=== PATIENT | female | born 1930 | race Caucasian/White ===

== ENCOUNTER 2017-01-26 14:56 | Inpatient (IN) | payer OTHER ==
[~2017-01-26] VITALS: Ht 154.9 cm; Wt 64.9 kg
--- NOTE | ~2017-01-26 | HC ---
[facility] [place] [address] CONSULTATION Name: GARCIA AYON Room #: 429-P [facility] IN M.R.#: [id number] Admission: 01/26/17 Attend Phys: Luis Enrique Su MD Discharge: Date of : 11/28/28 Report #: [id number] THIS REPORT FOR: //name// CC: Jayshree Mendez MD HISTORY OF PRESENT ILLNESS: The patient is an 86-year-old female who is confused. The patient's daughter is in the room and she states that her mother has some confusion at home, but has been more confused in the hospital and her daughter was concerned about this. The patient was admitted for urinary tract infection, which has now grown out Klebsiella pneumoniae and is now being treated with IV antibiotics. The patient is on thyroid medication. She has had a CT scan of the head and this showed global atrophy and moderate microvascular disease. I spoke with the patient's daughter and she is not interested in her mother being on any medication for her memory. PAST MEDICAL HISTORY: Hypertension, hyperlipidemia, hypothyroidism, Fuchs disease, dementia. PAST SURGICAL HISTORY: Left hip replacement, cataract removal, corneal transplant. MEDICATIONS: At home levothyroxine 150 mcg daily, Zocor 20 mg at bedtime, trazodone 50 mg at bedtime, aspirin 81 mg daily, fish oil 1000 mg daily, vitamin C 500 mg daily, magnesium 250 mg daily, calcium daily, vitamin B12 1000 mcg daily, multivitamin daily, glucosamine 2000 mg daily, coconut oil 1000 mg daily, lecithin 1200 mg daily, Combigan eye drops b.i.d. REVIEW OF SYSTEMS: SULFA. OBJECTIVE" VITAL SIGNS: Temperature 36.8, pulse rate 102, respiratory rate 17, blood pressure 143/83, bedside pulse oximetry 84% on room air. LABORATORY DATA: White blood cell count 9.1, hemoglobin 13.2, hematocrit 38.5, MCV 89.5, platelet count 241,000. Urinalysis, trace blood, 1+ leukocyte esterase, few bacteria. Chemistry: Sodium 131, potassium 4.2, chloride 97, carbon dioxide 24, BUN 10, creatinine 0.8, glucose 103. Lactic acid 1. Calcium 8.2, magnesium 2.1, total bilirubin 0.7, AST 29, ALT 28. TSH 2.198. PHYSICAL EXAMINATION: NEUROLOGIC: The patient did not know the year. When I asked her who her daughter was, she said this is my mother. It was difficult to know whether she was joking because she did know her daughter's first and last name. NEUROLOGIC: Cranial nerves 2-12 are grossly intact. She moved all extremities equally. There was no evidence of dysmetria. [place] [address] CONSULTATION Name: GARCIA AYON Room #: 429-P [facility] IN M.R.#: [id number] Admission: 01/26/17 Attend Phys: Luis Enrique Su MD Discharge: Date of : 11/28/28 Report #: [id number] IMPRESSION: This patient has dementia. I explained to her daughter that her mother will be more confused when she is not in a familiar environment and when she has an underlying infection. Once the infection is cleared and her mother returns home. She will return to her baseline confusion. I asked her daughter if she would like medication for the memory. Her daughter declined. I will order a B12 level to see if perhaps low B12 is contributing to the confusion and her daughter was amenable to having this done. Beyond this, I have no further suggestions. I thank you for your kind referral of the patient. <ELECTRONICALLY SIGNED> By: Jessie Bueno DO 01/30/17 1024 [id number] 0710 Jessie Bueno DO /nt
--- NOTE | ~2017-01-26 | EKG ---
[address] [place] [address] ELECTROCARDIOGRAM REPORT Name: GABORANULFOJaylene Room #: 429-P ADM IN M.R.#: [id number] Admission: 01/26/17 Attend Phys: Timmy Mendez MD Discharge: Date of : 11/28/28 Report #: [id number] THIS REPORT FOR: //name// [facility] ED Test Date: 2017-01-26 Test Time: 15:46:16 Pat Name: GARCIA AYON Department: Room: 429 Gender: F Program Scheduler: SONAM PECK : 1930 Requested By: Yecenia Head Order Number: [id number] MD: Temo Moreno Measurements Intervals [place] Rate: 75 P: 23 PA: 162 QRS: -8 QRSD: 82 T: 39 QT: 366 QTc: 409 Interpretive Statements Sinus rhythm Probable left atrial enlargement Abnormal R-wave progression, early transition Compared to ECG 09/08/2016 18:56:03 No significant changes Electronically Signed On 01-27-2017 22:24:46 CDT by Temo Moreno [email or web address] <ELECTRONICALLY SIGNED> By: Temo Moreno MD 01/27/17 2224 1546 1546 Temo Moreno MD /TRAV
[~2017-01-26 14:56] MED LIST: AZITHROMYCIN 2250 MG PO; LEVOTHYROXINE 0.15MG PO; NORVASC5 MG PO; TRAZODONE HCL50 MG PO; ZOCOR20 MG PO
[2017-01-26 14:57] VITALS: BP 176/95
[2017-01-26 15:38] LABS: BASOPHILS 0.6 % (0.0-2.0); EOSINOPHILS 0.9 % (0.0-3.0); HEMATOCRIT 38.6 % (37.0-47.0); HEMOGLOBIN 13.2 gm/dL (12.0-15.0); LYMPHOCYTES 25.6 % (24.0-44.0); MANUAL DIFF NO; MCH 30.6 pg (26.0-34.0); MCHC 34.2 g/dL (28.0-37.0); MCV 89.7 fL (80.0-100.0); PLATELET COUNT 263 thou/uL (150-400); POLYS 63.9 % (36.0-66.0); RDW 13.6 % (10.5-14.5); WBC 7.8 thou/uL (4.0-11.0)
[2017-01-26] MEDS ORDERED: FISH OIL 1,001000 M2 PO (15:41)
[2017-01-26] MEDS ORDERED: VITAMINC500 PO (15:41)
[2017-01-26] MEDS ORDERED: ASPIR 8181 MG PO (15:41)
[2017-01-26] MEDS ORDERED: CALCIUM 500 +1 EAC5 PO (15:42)
[2017-01-26] MEDS ORDERED: B12INJ IM (15:42)
[2017-01-26] MEDS ORDERED: UNICOMPLEX M TA1 TA1 PO (15:42)
[2017-01-26] MEDS ORDERED: MAGOX 400400 MG PO (15:42)
[2017-01-26] MEDS ORDERED: LECITHIN1200 M1 PO (15:43)
[2017-01-26] MEDS ORDERED: GLUCOSAMINE HC500 MG PO (15:43)
[2017-01-26] MEDS ORDERED: COCONUT OIL1000 MG PO (15:43)
[2017-01-26 15:47] LABS: ANION GAP 8 mmol/L (7-16); BUN 9 mg/dL (7-18); CALCIUM 8.3 mg/dL (8.5-10.1); CHLORIDE 95 mmol/L (98-107); CO2 24 mmol/L (21-32); CREATININE 0.8 mg/dL (0.6-1.0); GLUCOSE 97 mg/dL (74-106); POTASSIUM 4.2 mmol/L (3.5-5.1); SODIUM 127 mmol/L (136-145)
[2017-01-26] MEDS ORDERED: COMBIGAN EYE DR10 ML OP (15:47)
[2017-01-26] MEDS ORDERED: [UNRECOGNIZED DRUG - OTHER] OPHTHALMIC (15:49)
[2017-01-26 15:54] LABS: ALBUMIN 3.2 g/dL (3.4-5.0); ALKALINE PHOSPHATASE 88 U/L (46-116); SGOT 29 U/L (15-37); SGPT 28 U/L (30-65); TOTAL BILIRUBIN 0.7 mg/dL (<0.1-1.0); TOTAL PROTEIN 6.8 g/dL (6.4-8.2); TROPONIN-I < 0.04 ng/mL (<0.04-0.07)
[2017-01-26 15:58] LABS: MAGNESIUM 2.1 mg/dL (1.8-2.4)
[2017-01-26 16:04] LABS: URINE BILIRUBIN NEGATIVE (Negative); URINE BLOOD TRACE (Negative); URINE COLOR YELLOW; URINE GLUCOSE-RANDOM* NEGATIVE (Negative); URINE KETONES NEGATIVE (Negative); URINE NITRITE NEGATIVE (Negative); URINE PROTEIN (DIPSTICK) NEGATIVE (Negative); URINE UROBILINOGEN 0.2 E.U./dl (0.2-1.0)
[2017-01-26 16:16] LABS: SQUAMOUS 0-3 Few /LPF (0-3)
[2017-01-26 16:17] LABS: BACTERIA 1-9 Few /HPF (None Seen); CASTS None Seen /LPF (None Seen); CRYSTALS None Seen /LPF (None Seen); URINE RBC None Seen /HPF (0-2); URINE WBC 6-15 Few /HPF (0-5)
[2017-01-26 17:24] VITALS: BP 211/102
[2017-01-26 17:50] VITALS: BP 188/92
[2017-01-26 20:00] VITALS: BP 123/68
[2017-01-27 04:30] VITALS: BP 148/90
[2017-01-27 05:10] LABS: HEMATOCRIT 38.5 % (37.0-47.0); HEMOGLOBIN 13.2 gm/dL (12.0-15.0); MCH 30.6 pg (26.0-34.0); MCHC 34.2 g/dL (28.0-37.0); MCV 89.5 fL (80.0-100.0); RBC 4.31 mil/uL (4.20-5.00); RDW 13.8 % (10.5-14.5); WBC 9.1 thou/uL (4.0-11.0)
[2017-01-27 05:28] LABS: CALCIUM 8.2 mg/dL (8.5-10.1); CREATININE 0.8 mg/dL (0.6-1.0)
[2017-01-27 07:18] VITALS: BP 180/93
[2017-01-27 17:57] VITALS: BP 156/69
[2017-01-27 20:00] VITALS: BP 144/66
[2017-01-27 23:45] VITALS: BP 144/66
[2017-01-28 04:00] VITALS: BP 195/95
[2017-01-28 07:09] LABS: CALCIUM 8.2 mg/dL (8.5-10.1); CREATININE 0.8 mg/dL (0.6-1.0); POTASSIUM 4.2 mmol/L (3.5-5.1)
[2017-01-28 11:15] VITALS: BP 174/89
[2017-01-28 15:49] VITALS: BP 143/83
[2017-01-28 20:00] VITALS: BP 120/49; BP 186/92
[2017-01-29 04:15] VITALS: BP 186/92
[2017-01-29 04:30] VITALS: BP 158/88
[2017-01-29 05:24] LABS: ABSOLUTE NEUTROPHILS 5.5 thou/uL (1.4-8.2); BASOPHILS 0.4 % (0.0-2.0); EOSINOPHILS 0.5 % (0.0-3.0); HEMATOCRIT 37.3 % (37.0-47.0); HEMOGLOBIN 12.6 gm/dL (12.0-15.0); MCH 30.2 pg (26.0-34.0); MCHC 33.8 g/dL (28.0-37.0); MCV 89.3 fL (80.0-100.0); MONOCYTES 7.6 % (1.0-8.0); PLATELET COUNT 229 thou/uL (150-400); POLYS 76.5 % (36.0-66.0); RBC 4.17 mil/uL (4.20-5.00); RDW 14.1 % (10.5-14.5); WBC 7.2 thou/uL (4.0-11.0)
[2017-01-29 05:42] LABS: CALCIUM 7.9 mg/dL (8.5-10.1); CREATININE 0.8 mg/dL (0.6-1.0)
[2017-01-29 05:44] LABS: MANUAL DIFF NO
[2017-01-29 07:40] VITALS: BP 154/87
[2017-01-29 20:00] VITALS: BP 119/74
[2017-01-30 04:00] VITALS: BP 160/74
[2017-01-30 06:55] LABS: CALCIUM 8.1 mg/dL (8.5-10.1); CREATININE 0.8 mg/dL (0.6-1.0); POTASSIUM 4.2 mmol/L (3.5-5.1)
[2017-01-30 07:17] VITALS: BP 150/79
[2017-01-30] MEDS ORDERED: CEFUROXIME500 MG PO (10:35)
[2017-01-30] MEDS ORDERED: AMLODIPINE BESYL5 M1 PO (10:35)
[2017-01-30] MEDS ORDERED: COZAAR100 MG PO (10:35)
[2017-01-30 14:47] VITALS: BP 150/79
[2017-01-30 15:33] VITALS: BP 159/91
[2017-01-30 16:08] VITALS: BP 150/79
== END 2017-01-30 19:00 | disposition home or self-care (01) | DRG 689 ==
LOC: ER 14:56 → 4E 16:24 → EROBS 16:24 → 4E 17:27
PROVIDERS: Hospitalist; Internal Medicine; Internal Medicine Endocrinology, Diabetes & Metabolism; Nurse Practitioner Family
DX: N39.0 Urinary tract infection, site not specified (principal); G93.41 Metabolic encephalopathy; E87.1 Hypo-osmolality and hyponatremia; F03.90 Unspecified dementia, unspecified severity, without behavioral disturbance, psychotic disturbance, mood disturbance, and anxiety; E78.5 Hyperlipidemia, unspecified; B96.1 Klebsiella pneumoniae [K. pneumoniae] as the cause of diseases classified elsewhere; I10 Essential (primary) hypertension; Z96.642 Presence of left artificial hip joint; Z98.49 Cataract extraction status, unspecified eye; Z94.7 Corneal transplant status; Z88.2 Allergy status to sulfonamides; Z79.899 Other long term (current) drug therapy
CPT/HCPCS: 10084; 10783

== ENCOUNTER 2017-02-08 20:59 | Inpatient (IN) | payer OTHER ==
[~2017-02-08] VITALS: Ht 154.9 cm; Wt 62.5 kg
--- NOTE | ~2017-02-08 | 2DMMODE ---
[facility] [address] [facility] [place] [address] 2 D/M-MODE ECHOCARDIOGRAM Name: GARCIA AYON Room #: 239-P [facility] IN ..#: [id number] Admission: 02/08/17 Attend Phys: Prosper Virgen, Discharge: Date of : 11/28/28 Date of Service: 02/09/17 1225 Report #: [id number] THIS REPORT FOR: //name// APPROVED REPORT Study performed: 02/09/2017 10:29:20 EXAM: Comprehensive 2D, Doppler, and color-flow Echocardiogram Patient Location: Bedside/MUSIC THERAPIST Room #: 545 Blood Pressure: 192/108 mmHg HR: 77 bpm Rhythm: NSR Other Information Study Quality: Adequate Indications Altered mental status. Hypotension. Hx: HTN, HLP 2D Dimensions RVDd: 26.45 mm LVEF(%): 55.17 (>50%) IVSd: 11.88 (7-11mm) LVOT Diam: 18.71 (18-24mm) LVDd: 36.20 mm PWd: 0.28 (7-11mm) Ascending Ao: 35.17 (22-36mm) LVDs: 26.05 (25-40mm) Aortic Root: 11.55 mm Crump's LVEF: 55.17 % Volumes Left Atrial Volume (Systole) Single Plane 4CH: 26.36 mL Single Plane 2CH: 54.93 mL LA ESV Index: 27.00 mL/m2 Aortic Valve AoV Peak Kendall.: 2.59 m/s AO Peak Gr.: 26.86 mmHg LVOT Max P.58 mmHg AO Mean Gr.: 15.05 mmHg AO V2 Mean: 1.87 m/s LVOT Max V: 0.95 m/s AO V2 VTI: 59.64 cm SHIN Vmax: 1.00 cm2 [facility] [place] [address] 2 D/M-MODE ECHOCARDIOGRAM Name: GARCIA AYON Room #: 239-P [facility] IN M.R.#: [id number] Admission: 02/08/17 Attend Phys: Prosper Virgen, Discharge: Date of : 11/28/28 Date of Service: 02/09/17 1225 Report #: [id number] Mitral Valve E/A Ratio: 0.6 MV Decel. Time: 201.64 ms MV E Max Kendall.: 0.78 m/s MV A Kendall.: 1.20 m/s MV PHT: 58.47 ms IVRT: 117.65 ms Pulmonary Valve PV Peak Kendall.: 0.99 m/s PV Peak Gr.: 3.92 mmHg Pulmonary Vein P Vein S: 0.56 m/s P Vein D: 0.31 m/s P Vein S/D Ratio: 1.81 Tricuspid Valve TR Peak Kendall.: 2.99 m/s RAP Estimate: 5.00 mmHg TR Peak Gr.: 35.75 mmHg RVSP: 41.00 mmHg Left Ventricle The left ventricle is normal size. There is normal LV segmental wall motion. Mild concentric left ventricular hypertrophy. Left ventricular systolic function is normal. LVEF is 55-60%. Grade I - abnormal relaxation pattern. Right Ventricle The right ventricle is normal size. The right ventricular systolic function is normal. Atria The left atrium size is normal. Small PFO is noted. The right atrium size is normal. Aortic Valve Aortic valve is moderately calcified. Mild aortic regurgitation. Mild to at most moderate aortic stenosis. Mitral Valve The mitral valve is mildly thickened. Moderate mitral regurgitation. Tricuspid Valve The tricuspid valve is normal in structure. There is mild to moderate tricuspid regurgitation. The right atrial pressure is estimated at 5 mmHg. There is mild-moderate pulmonary hypertension with an estimated [facility] [address] [place] [address] 2 D/M-MODE ECHOCARDIOGRAM Name: GARCIA AYON Room #: 239-P ADM IN .R.#: [id number] Admission: 02/08/17 Attend Phys: Prosper Virgen, Discharge: Date of : 11/28/28 Date of Service: 02/09/17 1225 Report #: [id number] PAP of 41mmHg. Pulmonic Valve The pulmonary valve is normal in structure. Trace pulmonic regurgitation. Great Vessels The aortic root is normal in size. The ascending aorta is normal in size. IVC is normal in size and collapses >50% with inspiration. Pericardium There is no pericardial effusion. <Conclusion> Left ventricular systolic function is normal. There is normal LV segmental wall motion. LVEF 55-60%. Grade I diastolic dysfunction Aortic valve is moderately calcified. Mild to at most moderate aortic stenosis. Mild aortic regurgitation. The mitral valve is mildly thickened. Moderate mitral regurgitation. Pulmonary artery pressure of 40mm Hg. There is no pericardial effusion. <ELECTRONICALLY SIGNED> By: Cedrick Galeano MD, FACC 02/09/17 1225 1225 1225 Cedrick Galeano MD, FACC /INF
--- NOTE | ~2017-02-08 | EKG ---
[address] [address] ELECTROCARDIOGRAM REPORT Name: RANULFO AYONJaylene Room #: 239-P ADM IN M.R.#: [id number] Admission: 02/08/17 Attend Phys: Jeremi Nunez MD Discharge: Date of : 11/28/28 Report #: [id number] THIS REPORT FOR: //name// [facility] Test Date: 2017-02-09 Test Time: 12:54:49 Pat Name: GARCIA AYON Department: Room: 239 Gender: F User Experience Team Lead: SANDRA : 1930 Requested By: Curtis Rojas Order Number: [id number] MD: Cedrick Galeano Measurements Intervals [place] Rate: 81 P: 27 ND: 181 QRS: 3 QRSD: 88 T: 54 QT: 394 QTc: 458 Interpretive Statements Sinus rhythm No significant abnormality Compared to ECG 01/26/2017 15:46:16 No significant change was found Electronically Signed On 02-10-2017 11:47:52 CDT by Cedrick Galeano [email or web address] <ELECTRONICALLY SIGNED> By: Cedrick Galeano MD, [facility] 02/10/17 1147 1254 1254 Cedrick Galeaon MD, FAC /EPI
--- NOTE | ~2017-02-08 | HC ---
[facility] [place] [address] CONSULTATION Name: GARCIA AYON Room #: 203-P [facility] IN M.R.#: [id number] Admission: 02/08/17 Attend Phys: Prosper Virgen MD Discharge: Date of : 11/28/[birth year] Report #: [id number] THIS REPORT FOR: //name// CC: Prosper Virgen Jayshree Luis HISTORY OF PRESENT ILLNESS: The patient is an 86-year-old white female who was admitted with hypertension, headache and hallucinations. She has had some problems with low blood pressure as well as elevated blood pressure up to 212/116. She was readmitted to [facility] with delirium/encephalopathy on top of dementia with hallucinations. She was noted to have hyponatremia, sodium 127, labile hypertension, question of pneumonia. She is being seen by Neurology and an EEG is being done. Nephrology is involved with noted hyponatremia, is thought to have a sodium depleted state. There is a question of SIADH. She is being monitored in the ICU regarding her labile hypertension and her multiple medical issues. She has the psychosis/hallucinations. She was noted to have dyslipidemia. She also is being treated for pneumonia with a left basilar infiltrate. We are seeing her in rehabilitation medicine consultation. Her sodium actually dropped all the way down to 116 and Nephrology has been involved and it has improved since, back up to 126. PAST MEDICAL HISTORY: Includes her recent hospitalization 01/26/2017 to 01/30/2017 with a diagnosis of encephalopathy, metabolic with underlying dementia. Neurology saw her. Recommendation was for Aricept. The daughter was not interested. Past history also includes hypertension, high cholesterol, left hip replacement, cataract removal, corneal transplant. PAST SURGICAL HISTORY: Please see the above. HABITS: Nonsmoker, no history of alcohol or drug abuse. MEDICATIONS: Please see the full medication listing. ALLERGIES: Includes SULFA. SOCIAL HISTORY: Lives with her daughter who works during the day, there are 2 steps in, other family members had been able to stay with the patient after her most recent hospitalization. REVIEW OF SYSTEMS: Did not offer any current complaints of chest pain, shortness of breath or abdominal discomfort. Review of systems was somewhat limited with her current mental status. PHYSICAL EXAMINATION: GENERAL: An 86-year-old white female seen in the intensive care unit. VITAL SIGNS: Last recorded temperature is 97.8, pulse 77, respirations 15, [facility] [address] [place] [address] CONSULTATION Name: GARCIA AYON Room #: 203-P [facility] IN M.R.#: [id number] Admission: 02/08/17 Attend Phys: Prosper Virgen MD Discharge: Date of : 11/28/28 Report #: [id number] blood pressure is 90/59. NEUROLOGIC: The patient is sleepy. She will arouse and then quickly go back off to sleep. Facies appeared symmetric. She has functional range of motion of both her upper and lower extremities. I could not get actual volitional testing results with her, but she appeared to have reasonably good strength, probably at least a grade 4- to 3+/5. Tone appeared to be intact. No focal calf swelling. No distal lower extremity edema. ASSESSMENT: An 86-year-old white female with the following problem list: 1. Apparent encephalopathy, metabolic with hallucinations superimposed underlying dementia. 2. Severe hyponatremia that has improved. 3. Labile hypertension. 4. Possible pneumonia on empiric Rocephin. 5. Hypothyroidism. 6. Hyperlipidemia. PLAN: Note that Neurology is involved and an EEG has been ordered. PT and OT orders have been entered as well. We will continue to follow along with you regarding rehab therapy needs as she further medically stabilizes. <ELECTRONICALLY SIGNED> By: Caden Mcgovern MD 02/15/17 1556 1134 2235 Caden Mcgovern MD /nt
--- NOTE | ~2017-02-08 | HC ---
[facility] [place] [address] CONSULTATION Name: GARCIA AYON Room #: 239-P ADM IN M.R.#: [id number] Admission: 02/08/17 Attend Phys: Prosper Virgen MD Discharge: Date of : 11/28/28 Report #: [id number] THIS REPORT FOR: //name// CC: Jayshree Nuenz REASON FOR THE CONSULTATION: Hyponatremia. HISTORY OF PRESENT ILLNESS: The details of the history are not available as the patient is not able to provide me with any history. She has an acute mental status issue. She was brought to the emergency room for evaluation of hypertension, headache, hallucination. She had a recent hospitalization couple of weeks ago and was found to have urinary tract infection per the notes. She is known to have hypertension, hyperlipidemia. On presentation, she was found to have sodium of 127. Over the course of 36 hours, her sodium dropped down to 117. Does look like the patient was receiving normal saline. She is also known to have hypothyroidism. She had received numerous antipsychotic medications. There is no new medications started as an outpatient. She is maintained on amlodipine, losartan for blood pressure. She does not have any kidney problems in the past. No known cardiac problems. As I have stated, the patient is currently not able to provide me with the details of the history. PAST MEDICAL HISTORY: 1. Hypertension. 2. Hyperlipidemia. 3. Recent urinary tract infection. 4. Hypothyroidism. MEDICATIONS: Listed ____, coconut, glucosamine, magnesium, aspirin, trazodone, levothyroxine, cefuroxime, losartan, amlodipine. PAST SURGICAL HISTORY: Corneal transplant. Left hip replacement. SOCIAL HISTORY: No drug or alcohol abuse. REVIEW OF SYSTEMS: Unobtainable given the patient's mental status. PHYSICAL EXAMINATION: GENERAL: The patient is currently confused. She is not able to provide me with any history. She is not able to cooperate with examination. VITAL SIGNS: Most recent blood pressure values revealed a blood pressure of 170/109. Pulse rate 88. HEAD AND NECK: No jugular venous distention, no bruit, no thyromegaly. CHEST: Clear to auscultation bilaterally. CARDIOVASCULAR: No rub detected. ABDOMEN: Soft, nontender. LOWER EXTREMITIES: She does have edema. [facility] [address] [place] [address] CONSULTATION Name: [facility]ITAL[facility] Room #: 239-[facility] IN M.R.#: [id number] Admission: 02/08/17 Attend Phys: Prosper Virgen MD Discharge: Date of : 11/28/[birth year] Report #: [id number] LABORATORY VALUES: Reviewed. Sodium is down to 117. Chloride is 86, carbon dioxide is 21, BUN is 8, creatinine is 0.7, glucose is 124. UA revealed an urine pH of 7 and urine specific gravity of . IMAGING: Including the chest x-ray reviewed. ASSESSMENT, IMPRESSION AND PLAN: 1. Hyponatremia. 2. Hypertension. 3. Dementia. 4. Fuchs corneal dystrophy. 5. Source of the hyponatremia is likely related to desalination after receiving the normal saline. I would discontinue the normal saline. 6. I will initiate the workup for the hyponatremia with the appropriate urine studies, osmolarity studies. 7. Minimize all medications that might contribute to hyponatremia including sedatives, hypnotics. 8. Manage her blood pressure with clonidine patch for now. 9. One dose of Lasix. 10. Keep n.p.o. for now. 11. Serial sodium. 12. I will check on the next serum sodium level to decide about further adjustment of her medications including starting her on 3% normal saline. 13. If that is to be initiated we will have to follow the serum sodium closely and aim for a very slow correction of her serum sodium. Further plans will be dictated after we obtain the initial urine studies. <ELECTRONICALLY SIGNED> By: Clifford Cotton MD 02/12/17 0735 0748 1416 Rebeca Quiroz MD /nt
--- NOTE | ~2017-02-08 | HC ---
[facility] [place] [address] CONSULTATION Name: GARCIA AYON Room #: 239-[facility] IN M.R.#: [id number] Admission: 02/08/17 Attend Phys: Prosper Virgen MD Discharge: Date of : 11/28/28 Report #: [id number] THIS REPORT FOR: //name// CC: Jayshree Nunez REASON FOR CONSULTATION: Hypertension. HISTORY OF PRESENT ILLNESS: The patient is an 86-year-old woman with severe underlying dementia. She has a history of hypertension and was seen in the Emergency Department for hallucinations and headache. She had been evaluated in the Emergency Department and sent home on amlodipine and losartan for a blood pressure of 212/116. The patient's daughter has checked blood pressure carefully and held dosing for blood pressures that had been on the low side. At the time of presentation, her blood pressure was 165/83. After getting to the floor, she became more confused, was hallucinating and crawled under her bed. She was given clonidine 0.1 mg for blood pressure of 203/112 with subsequent drop in blood pressure that was clinically asymptomatic. There is no prior cardiac history that I can glean from the chart. HOME MEDICATIONS: Include amlodipine 5 mg daily, levothyroxine 0.15 mg daily, Zocor 20 mg daily, trazodone, aspirin 81 mg daily. PAST MEDICAL HISTORY: Notable for left hip replacement, dyslipidemia, hypertension corneal transplant, dementia. SOCIAL HISTORY, FAMILY HISTORY AND REVIEW OF SYSTEMS: Not obtainable. PHYSICAL EXAMINATION: GENERAL: Reveals an elderly woman who is alert, although unable to give any meaningful history. VITAL SIGNS: Blood pressure is 192/108, heart rate of 80 and regular. She is afebrile, 5 feet 1 inches tall, 155 pounds. HEENT: There are neither xanthelasma, subcutaneous xanthomata, oral mucosal or digital cyanosis or kyphoscoliosis present. CHEST: Clear to auscultation and percussion. CARDIOVASCULAR: Regular rate and rhythm with a 2/6 systolic ejection murmur at the base. ABDOMEN: Soft and nontender. EXTREMITIES: Without edema. NEUROLOGIC: She is alert, although confused and disoriented. LABORATORY DATA: Sodium 127, potassium 4.7, creatinine 0.8. White count 6.7, hemoglobin 13, hematocrit 38, platelet count 239. Thyroid function studies are normal. Head CT demonstrates chronic changes. Chest x-ray demonstrates left basilar atelectasis or infiltrate, pulmonary [place] [address] CONSULTATION Name: GARCIA AYON Room #: [address] [place] [address] [place] [facility]#: [id number] Admission: 02/08/17 Attend Phys: Prosper Virgen MD Discharge: Date of : 11/28/[birth year] Report #: [id number] IMPRESSION: 1. Weight loss, hypertension. 2. Hypothyroidism. 3. Dyslipidemia. 4. Probable aortic stenosis by exam. RECOMMENDATIONS: 1. Continued use of low-dose losartan and amlodipine. 2. Dietary salt restriction. 3. In the absence of particular symptoms, I would be careful about treating hypertension as symptomatic hypotension will be more of a problem for the patient than moderate elevation. I will be available as issues or problems arise. <ELECTRONICALLY SIGNED> By: Cedrick Galeano MD, [facility] 02/11/17 1743 1146 1808 Cedrick Galeano MD, FAC /nt
[~2017-02-08 20:59] MED LIST changes: +AMLODIPINE BESYL5 M1 PO; +ASPIR 8181 MG PO; +B12INJ IM; +CALCIUM 500 +1 EAC5 PO; +CEFUROXIME500 MG PO; +COCONUT OIL1000 MG PO; +COMBIGAN EYE DR10 ML OP; +COZAAR100 MG PO; +FISH OIL 1,001000 M2 PO; +GLUCOSAMINE HC500 MG PO; +LECITHIN1200 M1 PO; +MAGOX 400400 MG PO; +UNICOMPLEX M TA1 TA1 PO; +VITAMINC500 PO; +[UNRECOGNIZED DRUG - OTHER] OPHTHALMIC
[2017-02-08 21:03] VITALS: BP 164/94
[2017-02-08 21:35] LABS: ABSOLUTE NEUTROPHILS 4.2 thou/uL (1.4-8.2); BASOPHILS 0.9 % (0.0-2.0); HEMATOCRIT 38.3 % (37.0-47.0); HEMOGLOBIN 13.1 gm/dL (12.0-15.0); MCH 30.8 pg (26.0-34.0); MCHC 34.3 g/dL (28.0-37.0); MCV 89.7 fL (80.0-100.0); MONOCYTES 8.9 % (1.0-8.0); PLATELET COUNT 239 thou/uL (150-400); POLYS 62.2 % (36.0-66.0); RBC 4.27 mil/uL (4.20-5.00); RDW 13.8 % (10.5-14.5); WBC 6.7 thou/uL (4.0-11.0)
[2017-02-08 21:36] LABS: MANUAL DIFF NO
[2017-02-08 21:37] LABS: URINE BILIRUBIN NEGATIVE (Negative); URINE BLOOD TRACE (Negative); URINE COLOR YELLOW; URINE GLUCOSE-RANDOM* NEGATIVE (Negative); URINE KETONES NEGATIVE (Negative); URINE LEUKOCYTES-REFLEX NEGATIVE (Negative); URINE PROTEIN (DIPSTICK) NEGATIVE (Negative); URINE UROBILINOGEN 0.2 E.U./dl (0.2-1.0)
[2017-02-08 21:41] LABS: CALCIUM 8.7 mg/dL (8.5-10.1); CREATININE 0.8 mg/dL (0.6-1.0); POTASSIUM 4.7 mmol/L (3.5-5.1)
[2017-02-08 22:59] VITALS: BP 165/83
[2017-02-08 23:59] VITALS: BP 195/107
[2017-02-09 04:14] VITALS: BP 203/112
[2017-02-09 07:56] VITALS: BP 192/108
[2017-02-09 14:40] VITALS: BP 181/109
[2017-02-09 16:00] VITALS: BP 187/104
[2017-02-09 19:25] VITALS: BP 144/89
[2017-02-09 23:09] LABS: GLYCOHEMOGLOBIN (HGB A1C) 5.6 % (4.8-5.6)
[2017-02-10] VITALS (57 sets, daily range): BP systolic 78–227; BP diastolic 50–155
[2017-02-10 03:26] LABS: HEMATOCRIT 38.4 % (37.0-47.0); HEMOGLOBIN 13.8 gm/dL (12.0-15.0); MCH 31.6 pg (26.0-34.0); MCHC 35.9 g/dL (28.0-37.0); RBC 4.36 mil/uL (4.20-5.00); RDW 13.6 % (10.5-14.5); WBC 8.2 thou/uL (4.0-11.0)
[2017-02-10 03:38] LABS: CALCIUM 8.3 mg/dL (8.5-10.1); CREATININE 0.6 mg/dL (0.6-1.0); POTASSIUM 3.8 mmol/L (3.5-5.1)
[2017-02-10 07:01] LABS: CALCIUM 8.5 mg/dL (8.5-10.1); CREATININE 0.7 mg/dL (0.6-1.0); POTASSIUM 4.2 mmol/L (3.5-5.1)
[2017-02-10 08:50] LABS: URINE BILIRUBIN NEGATIVE (Negative); URINE BLOOD 1+ (Negative); URINE COLOR YELLOW; URINE GLUCOSE-RANDOM* NEGATIVE (Negative); URINE KETONES NEGATIVE (Negative); URINE NITRITE NEGATIVE (Negative); URINE PROTEIN (DIPSTICK) TRACE (Negative); URINE SPECIFIC GRAVITY <= 1.005 (1.003-1.035); URINE UROBILINOGEN 0.2 E.U./dl (0.2-1.0)
[2017-02-10 09:09] LABS: SQUAMOUS 0-3 Few /LPF (0-3)
[2017-02-10 09:10] LABS: BACTERIA None Seen /HPF (None Seen); CASTS None Seen /LPF (None Seen); CRYSTALS None Seen /LPF (None Seen); URINE RBC 0-2 Rare /HPF (0-2); URINE WBC 0-5 Rare /HPF (0-5)
[2017-02-10 11:10] LABS: CREATININE 0.8 mg/dL (0.6-1.0); POTASSIUM 3.7 mmol/L (3.5-5.1)
[2017-02-10 11:11] LABS: CALCIUM 8.6 mg/dL (8.5-10.1)
[2017-02-10 15:09] LABS: CALCIUM 8.6 mg/dL (8.5-10.1); CREATININE 0.8 mg/dL (0.6-1.0); POTASSIUM 3.9 mmol/L (3.5-5.1)
[2017-02-10 22:08] LABS: URINE CREATININE-RANDOM* 26.4 mg/dL (Not Estab.)
[2017-02-11] VITALS (41 sets, daily range): BP systolic 54–161; BP diastolic 46–86
[2017-02-11 04:25] LABS: CALCIUM 8.3 mg/dL (8.5-10.1); CREATININE 0.9 mg/dL (0.6-1.0); PHOSPHORUS 3.6 mg/dL (2.5-4.9)
[2017-02-11 10:18] LABS: CHOLESTEROL 140 mg/dL (<200); HDL CHOLESTEROL 52 mg/dL (>40); LDL CHOLESTEROL 77 mg/dL (<100); TC:HDL 2.7 Ratio (Not establshd); TRIGLYCERIDE 59 mg/dL (<150); VLDL 12 mg/dL (<40)
[2017-02-11 12:09] LABS: FREE T4 2.25 ng/dL (0.82-1.77)
[2017-02-11 20:11] LABS: CALCIUM 8.4 mg/dL (8.5-10.1); CREATININE 1.1 mg/dL (0.6-1.0); POTASSIUM 3.6 mmol/L (3.5-5.1)
[2017-02-12] VITALS (14 sets, daily range): BP systolic 117–180; BP diastolic 70–151
[2017-02-12 05:26] LABS: HEMATOCRIT 42.2 % (37.0-47.0); HEMOGLOBIN 14.3 gm/dL (12.0-15.0); MCH 30.7 pg (26.0-34.0); MCV 90.3 fL (80.0-100.0); RBC 4.68 mil/uL (4.20-5.00); RDW 13.7 % (10.5-14.5); WBC 6.8 thou/uL (4.0-11.0)
[2017-02-12 05:47] LABS: ALBUMIN 3.3 g/dL (3.4-5.0); CALCIUM 8.6 mg/dL (8.5-10.1); CREATININE 0.9 mg/dL (0.6-1.0); MAGNESIUM 1.9 mg/dL (1.8-2.4); POTASSIUM 3.7 mmol/L (3.5-5.1)
[2017-02-12 06:08] LABS: GLYCOHEMOGLOBIN (HGB A1C) 5.6 % (4.8-5.6)
[2017-02-13] VITALS (8 sets, daily range): BP systolic 101–185; BP diastolic 50–112
[2017-02-13 02:52] LABS: HEMATOCRIT 43.2 % (37.0-47.0); HEMOGLOBIN 14.8 gm/dL (12.0-15.0); MCH 30.6 pg (26.0-34.0); MCHC 34.2 g/dL (28.0-37.0); MCV 89.4 fL (80.0-100.0); RBC 4.83 mil/uL (4.20-5.00); RDW 13.9 % (10.5-14.5); WBC 9.9 thou/uL (4.0-11.0)
[2017-02-13 03:11] LABS: ALBUMIN 3.3 g/dL (3.4-5.0); CALCIUM 8.6 mg/dL (8.5-10.1); CREATININE 0.9 mg/dL (0.6-1.0); PHOSPHORUS 3.1 mg/dL (2.5-4.9); POTASSIUM 3.8 mmol/L (3.5-5.1)
[2017-02-13 13:10] LABS: ALPHA TOCOPHEROL 10.7 mg/L (6.5-21.5)
[2017-02-14] VITALS (7 sets, daily range): BP systolic 80–188; BP diastolic 51–95
[2017-02-14 03:17] LABS: HEMATOCRIT 41.3 % (37.0-47.0); HEMOGLOBIN 14.2 gm/dL (12.0-15.0); MCH 30.7 pg (26.0-34.0); MCHC 34.3 g/dL (28.0-37.0); MCV 89.4 fL (80.0-100.0); RBC 4.62 mil/uL (4.20-5.00); RDW 13.8 % (10.5-14.5); WBC 9.5 thou/uL (4.0-11.0)
[2017-02-14 03:42] LABS: ALBUMIN 3.2 g/dL (3.4-5.0); CALCIUM 8.7 mg/dL (8.5-10.1); CREATININE 0.9 mg/dL (0.6-1.0); PHOSPHORUS 3.4 mg/dL (2.5-4.9); POTASSIUM 3.9 mmol/L (3.5-5.1)
[2017-02-15 01:42] VITALS: BP 142/90
[2017-02-15 03:12] LABS: CALCIUM 8.7 mg/dL (8.5-10.1); CREATININE 0.9 mg/dL (0.6-1.0); POTASSIUM 3.5 mmol/L (3.5-5.1)
[2017-02-15 03:58] VITALS: BP 146/82
[2017-02-15 07:20] VITALS: BP 95/53
[2017-02-15] MEDS ORDERED: AUGMENTIN 500-1 EACH PO (09:20)
[2017-02-15] MEDS ORDERED: CATAPRES0.1 MG PO ×2 (09:20→09:30)
[2017-02-15] MEDS ORDERED: ASPIRIN325 PO (09:20)
[2017-02-15] MEDS ORDERED: RISPERDAL0.5 MG PO ×2 (09:26→09:28)
[2017-02-15 11:35] VITALS: BP 93/76
== END 2017-02-15 15:56 | DRG 177 ==
LOC: ER 20:59 → ICU 22:30 → EROBS 22:30 → 5S 23:36 → ICU 02-10 06:29 → 2N 02-12 14:59
PROVIDERS: Emergency Medicine; Hospitalist; Internal Medicine Nephrology; Nurse Practitioner Family; Psychiatry & Neurology Neurology
DX: J69.0 Pneumonitis due to inhalation of food and vomit (principal); I63.9 Cerebral infarction, unspecified; E43 Unspecified severe protein-calorie malnutrition; G93.41 Metabolic encephalopathy; E87.1 Hypo-osmolality and hyponatremia; I10 Essential (primary) hypertension; E78.5 Hyperlipidemia, unspecified; Z96.642 Presence of left artificial hip joint; H18.51 Endothelial corneal dystrophy; E03.9 Hypothyroidism, unspecified; F03.90 Unspecified dementia, unspecified severity, without behavioral disturbance, psychotic disturbance, mood disturbance, and anxiety; F29 Unspecified psychosis not due to a substance or known physiological condition; R41.0 Disorientation, unspecified; Z98.49 Cataract extraction status, unspecified eye; Z88.2 Allergy status to sulfonamides; Z68.26 Body mass index [BMI] 26.0-26.9, adult; Z79.82 Long term (current) use of aspirin; Z79.899 Other long term (current) drug therapy; Z94.7 Corneal transplant status
CPT/HCPCS: 10081; 10086; 10196

== ENCOUNTER 2017-02-15 11:13 | Inpatient (IN) | payer OTHER ==
[~2017-02-15] VITALS: Ht 154.9 cm; Wt 68.4 kg
--- NOTE | ~2017-02-15 | HC ---
[facility] [place] [place] [address] CONSULTATION Name: GARCIA AYON Room #: 514-P [facility] IN M.R.#: [id number] Admission: 02/15/17 Attend Phys: Caden Mcgovern MD Discharge: 03/01/17 Date of : [birth year] Report #: [id number] THIS REPORT FOR: //name// CC: Caden Mcgovern Jayshree Luis DATE OF SERVICE: 02/17/2017 NEUROBEHAVIORAL STATUS EXAM ATTENDING PHYSICIAN: Caden Mcgovern M.D. TAX EVALUATOR: Kelvin Melgar, PhD CLINICAL PRESENTATION: The patient is an 86-year-old female admitted to the rehabilitation unit at [facility] for a comprehensive inpatient rehabilitation program to improve functional mobility, activities of daily living and self-care and mental status secondary to deficits from a metabolic encephalopathy. The patient was noted to have become confused and disoriented while in the home. Psychotic symptoms including hallucinations were noted. An has an underlying dementia is reported. She had a recent hospitalization on 01/26/2017 to 01/30/2017 with diagnoses of encephalopathy and underlying dementia. Her complete assessment on admission includes metabolic encephalopathy, severe hyponatremia which is improved with a question of inappropriate antidiuretic hormone secretion, labile hypertension, severe dysphagia, pulmonary infiltrates with possible pneumonia, premorbid dementia with independent community living. A complete description of her medical condition, history and medications can be found in her medical record. Neuropsychological consultation was requested to provide assistance in the assessment of cognitive and emotional status and to provide recommendations and services. Prior to this most recent hospitalization, she was living with the assistance of her daughter in the daughter's home. The patient is reported to have been functioning at a much higher level prior to this most recent medical event. She was reported as independent with basic activities of daily living to the extent of grooming and toileting. The daughter had been providing for nutrition and medication management. TECHNIQUES UTILIZED: Clinical interview, review of medical records, staff consultation and behavioral observation, mini mental status exam 2 standard version and clock drawing. EXAMINATION FINDINGS: The patient required encouragement to maintain an [facility] [address] [place] [address] CONSULTATION Name: GARCIA AYON Room #: 514-P [facility] IN .R.#: [id number] Admission: 02/15/17 Attend Phys: Caden Mcgovern MD Discharge: 03/01/17 Date of : [birth year] Report #: [id number] adequate level of responsiveness during the assessment. She was drowsy, which required increased effort to maintain her attention. She was unable to indicate the reason for her hospitalization. The patient also did not know why she was in the hospital or where she was living prior to this most recent admission. The patient had difficulty in identifying the number children she had. She also was unable to indicate if she had worked outside the home and displayed deficits in remote history. She was disoriented and confused during the assessment. The patient scores in the extremely low range on the MMSE 2 standard version. She required multiple repetitions for initial registration for adequate encoding. She was not oriented to time or place. Immediate memory was severely poor. The patient was unable to copy a simple geometric design. She could not write a sentence and had difficulty with initiating action. She was unable to draw the picture of a clock and also unable to indicate the way the numbers will be placed in a clock. With the clock drawn for her, she was unable to accurately set the hands at a designated time. The patient is not a reliable historian in regards to immediate history and cognitive symptoms. However, she did indicate increased anxiety and depressed mood. Problem solving is very slow and delayed. Auditory comprehension is poor. DIAGNOSTIC IMPRESSION: 1. Delirium, hypoactive, acute. 2. Major neurocognitive disorder (dementia), unspecified, without behavior disorder - severe. RECOMMENDATIONS: I attempted to contact her daughter who is unavailable at this time. Further assessment in regard to preexisting ability as noted by her daughter would be helpful in clarifying the severity of her neurocognitive deficits. At this time, she is presenting with a severe impairment and requires 24-hour care to provide for safety in the management of medications, nutrition and general health related activities. Educational information to the daughter in regard to the extent of the severity of the patient's cognitive dysfunction would also be helpful to allow for an adequately supervised environment upon discharge. Thank you very much for allowing me to provide the consultation on this patient. <ELECTRONICALLY SIGNED> By: Kelvin Melgar, PhD 03/03/17 1557 [id number] Kelvin Melgar, PhD /nt
--- NOTE | ~2017-02-15 | H ---
[facility] [place] [address] HISTORY AND PHYSICAL Name: GARCIA AYON Room #: 514-P [facility] IN M.R.#: [id number] Admission: 02/15/17 Attend Phys: Caden Mcgovern MD Discharge: 03/01/17 Date of : [birth year] Report #: [id number] THIS REPORT FOR: //name// CC: Caden Ferrarone Janelle DATE OF SERVICE: 02/15/2017 HISTORY OF PRESENT ILLNESS: The patient is an 86-year-old white female originally admitted to [facility] with hypertension, headache and hallucinations. She was noted to be severely hypertensive at 212/116. She was noted to have encephalopathy superimposed on some dementia with hallucinations. She had hyponatremia, labile hypertension, question of pneumonia. She was seen by neurology and an EEG was done. With the hyponatremia, she was thought to have a sodium depleted state with a question of SIADH. She was monitored in the ICU. She had psychosis, hallucinations, was noted to have dyslipidemia. She also was being treated for pneumonia with a left basilar infiltrate. She has significant dysphagia and is on pureed diet with honey thickened liquids. She has gradually improved and her sodium which had dropped all the way down to 116 has gradually improved. She still has significant cognitive deficits and has had a significant decrease from her premorbid functional status. She has a metabolic encephalopathy. She was placed on Risperdal per neurology. She has now been admitted for acute in-hospital inpatient rehabilitation. PAST MEDICAL HISTORY: Includes a recent hospitalization 01/26/2017 to 01/30/2017 with a diagnosis of encephalopathy, metabolic with underlying dementia. Neurology saw her. Recommendation was for Aricept, but the daughter was noted to not be interested. PAST MEDICAL HISTORY: Also includes hypertension, high cholesterol, left hip replacement, cataract removal, corneal transplant. PAST SURGICAL HISTORY: Please see the above. HABITS: Nonsmoker, no history of alcohol or drug abuse. MEDICATIONS: Please see the full medication listing. ALLERGIES: Include SULFA. SOCIAL HISTORY: Lives with her daughter who works during the day. There are 2 steps in. Other family members have been able to stay with the patient after her most recent hospitalization. REVIEW OF SYSTEMS: Did not offer any current complaints of chest pain, shortness of breath or abdominal discomfort. [address] [address] HISTORY AND PHYSICAL Name: GARCIA AYON Room #: 514-P [facility] IN M.R.#: [id number] Admission: 02/15/17 Attend Phys: Caden Mcgovern MD Discharge: 03/01/17 Date of : [birth year] Report #: [id number] REVIEW OF SYSTEMS: Was somewhat difficult with her mental status. PHYSICAL EXAMINATION: GENERAL: An 86-year-old white female in no obvious distress. She was rather sleepy when I saw her earlier today. She was pleasant, but tended to be confused and impulsive. Facies appeared symmetric. VITAL SIGNS: Her temp is 36.4, pulse 86, respirations 18, blood pressure 110/61. HEENT: Appeared benign. CHEST: Sounded clear to auscultation. CARDIOVASCULAR: Regular rate and rhythm. ABDOMEN: Bowel sounds positive, nontender. GENITOURINARY AND RECTAL: Deferred. EXTREMITIES: She has functional range of motion of both upper and lower extremities. I would grade her strength at probably a grade 4- to 3+/5. Tone appeared to be intact. No focal calf swelling. No distal lower extremity edema. Distal extremities appeared well perfused. Transfers are contact guard. She has been needing contact guard for limited functional mobility. She has been needing max assist to try to dress. ASSESSMENT: An 86-year-old white female with the following problem list: 1. Metabolic encephalopathy. 2. Severe hyponatremia has improved. Question of syndrome of inappropriate antidiuretic hormone secretion. 3. Labile hypertension. 4. Severe dysphagia, currently on pureed diet with honey thickened liquids. 5. Pulmonary infiltrates/possible pneumonia. 6. Premorbid dementia, nevertheless living in the community. She was home alone during the day. This is thought to be a metabolic encephalopathy superimposed on prior rather mild dementia. 7. History of hypothyroidism. 8. Hyperlipidemia. PLAN: The patient is admitted for acute in-hospital inpatient rehabilitation. From a post admission physician evaluation perspective, there are no relevant changes since the preadmission screening. Please see the above review of prior and current medical and functional conditions and comorbidities. Please see the above noted multiple comorbidities as far as complications that could potentially happen. As far as initial plan of care, she will be involved in the interdisciplinary acute rehab program with the goal of maximizing her functional independence so that she can hopefully return back to her prior living situation. Measurable functional goals would be for her to become modified independent with transfers, mobility and ADLs and to improve as far as swallowing and communication so that she can return back to the home setting. Prognosis is reasonably good with estimated length of stay probably at least 1-2 [facility] [address] [place] [address] HISTORY AND PHYSICAL Name: GARCIA AYON Room #: 514-P [facility] IN M.R.#: [id number] Admission: 02/15/17 Attend Phys: Caden Mcgovern MD Discharge: 03/01/17 Date of : [birth year] Report #: [id number] weeks pending progress. Potential barriers would include her multiple medical comorbidities and decreased functional status. The patient meets diagnostic criteria for an acute in-hospital inpatient rehabilitation stay. She meets medical necessity criteria. She does have the tolerance for an acute rehab stay and has appropriate discharge goals back to the home setting. <ELECTRONICALLY SIGNED> By: Caden Mcgovern MD 03/05/17 1515 [id number] Caden Mcgovern MD /nt
--- NOTE | ~2017-02-15 | PLAN ---
[facility] [place] [address] [address] REHAB UNIT PLAN OF CARE Name: GARCIA AYON Room #: 514-P [facility] IN M.R.#: [id number] Admission: 02/15/17 Attend Phys: Caden Mcgovern MD Discharge: 03/01/17 Date of : [birth year] Report #: [id number] THIS REPORT FOR: //name// CC: Caden Mcgovern Jayshree Luis The patient is seen back today in followup. She is sleepy, but will easily arouse. She could answer basic questions and follow basic commands, appeared pleasantly confused, but cooperative. Temperature 36.7, pulse 84, respirations 18, blood pressure 118/63. No focal calf swelling. Transfers have been min assist. Gait was min assist 200 feet with a front-wheeled walker. In occupational therapy, upper body dressing and lower body dressing are being assessed. She has been max assist with lower body dressing. In speech therapy, she is on a pureed with honey thickened liquid diet. ASSESSMENT: 1. Metabolic encephalopathy. 2. Severe hyponatremia that has improved. 3. Labile hypertension. 4. Severe dysphagia, on pureed with honey thickened liquid. 5. Pulmonary infiltrates with possible pneumonia. 6. Premorbid dementia. 7. History of hypothyroidism. 8. Hyperlipidemia. PLAN: The overall plan of care is based on the preadmission screen, post-admission physician evaluation and information garnered from therapy assessments. 1. Estimated length of stay is probably at least 10 days to 2 weeks and likely longer depending upon her needs. 2. Medical prognosis is reasonably good. 3. Anticipated interventions includes the interdisciplinary acute inpatient rehabilitation program with PT, OT and speech, rehab nursing assisting regarding medication management, skin care prophylaxis, bowel and bladder issues and nursing education. 4. Anticipated functional outcomes would be for the patient to become modified independent with transfers, mobility, ADLs and improvement in cognition to at least get back to her premorbid status, so she can get back to her prior living situation. 5. Discharge destination would be back home with her daughter. 6. Expected therapy by discipline includes PT, OT and speech 1 hour per day each five days a week throughout the duration of the acute inpatient rehabilitation stay. [address] [address] REHAB UNIT PLAN OF CARE Name: GABORANULFOJaylene Room #: 514-P [facility] IN M.R.#: [id number] Admission: 02/15/17 Attend Phys: Caden Mcgovern MD Discharge: 03/01/17 Date of : [birth year] Report #: [id number] ADDENDUM: The patient missed some therapy on 02/16, as she was unable to be awoken due to her sleepiness. <ELECTRONICALLY SIGNED> By: Caden Mcgovern MD 03/05/17 1515 1023 [id number] Caden Mcgovern MD /nt
[~2017-02-15 11:13] MED LIST changes: +ASPIRIN325 PO; +AUGMENTIN 500-1 EACH PO; +CATAPRES0.1 MG PO; +RISPERDAL0.5 MG PO
[2017-02-15 16:41] VITALS: BP 100/59
[2017-02-16 03:32] VITALS: BP 110/61
[2017-02-16 15:57] VITALS: BP 98/59
[2017-02-17 03:42] VITALS: BP 124/73
[2017-02-17 08:47] VITALS: BP 106/63
[2017-02-17 15:40] VITALS: BP 113/56
[2017-02-18 03:55] VITALS: BP 118/63
[2017-02-18 06:15] LABS: HEMATOCRIT 34.5 % (37.0-47.0); HEMOGLOBIN 11.7 gm/dL (12.0-15.0); MCH 31.1 pg (26.0-34.0); MCV 91.4 fL (80.0-100.0); RBC 3.77 mil/uL (4.20-5.00); RDW 13.7 % (10.5-14.5); WBC 6.2 thou/uL (4.0-11.0)
[2017-02-18 06:32] LABS: CALCIUM 8.5 mg/dL (8.5-10.1); CREATININE 0.8 mg/dL (0.6-1.0); POTASSIUM 4.4 mmol/L (3.5-5.1)
[2017-02-18 06:34] VITALS: BP 118/63
[2017-02-18 15:48] VITALS: BP 136/75
[2017-02-19 04:29] VITALS: BP 168/81
[2017-02-19 16:00] VITALS: BP 128/86
[2017-02-20 04:15] VITALS: BP 124/61
[2017-02-20 08:17] VITALS: BP 109/73
[2017-02-20 16:30] VITALS: BP 109/59
[2017-02-21 05:44] VITALS: BP 122/67
[2017-02-21 16:00] VITALS: BP 108/42
[2017-02-21 20:10] VITALS: BP 131/72
[2017-02-22 06:24] VITALS: BP 127/74
[2017-02-22 16:00] VITALS: BP 111/59; BP 133/70
[2017-02-23 06:11] VITALS: BP 127/70
[2017-02-23 09:10] VITALS: BP 93/54
[2017-02-23 09:15] VITALS: BP 97/56
[2017-02-23 15:30] VITALS: BP 99/64
[2017-02-24 05:10] VITALS: BP 126/55
[2017-02-24 16:00] VITALS: BP 125/75
[2017-02-25 05:34] VITALS: BP 121/52
[2017-02-25 05:52] LABS: BASOPHILS 0.5 % (0.0-2.0); EOSINOPHILS 1.6 % (0.0-3.0); HEMATOCRIT 34.5 % (37.0-47.0); HEMOGLOBIN 11.6 gm/dL (12.0-15.0); LYMPHOCYTES 26.7 % (24.0-44.0); MCH 30.8 pg (26.0-34.0); MCHC 33.6 g/dL (28.0-37.0); MCV 91.7 fL (80.0-100.0); PLATELET COUNT 159 thou/uL (150-400); POLYS 61.2 % (36.0-66.0); RBC 3.76 mil/uL (4.20-5.00); RDW 13.6 % (10.5-14.5); WBC 6.6 thou/uL (4.0-11.0)
[2017-02-25 05:53] LABS: MANUAL DIFF NO
[2017-02-25 06:07] LABS: CALCIUM 8.4 mg/dL (8.5-10.1); CREATININE 0.9 mg/dL (0.6-1.0); POTASSIUM 3.9 mmol/L (3.5-5.1)
[2017-02-25 16:10] VITALS: BP 86/45
[2017-02-26 05:23] VITALS: BP 140/78
[2017-02-26 16:00] VITALS: BP 105/55
[2017-02-27 05:10] LABS: ABSOLUTE NEUTROPHILS 4.3 thou/uL (1.4-8.2); BASOPHILS 0.6 % (0.0-2.0); EOSINOPHILS 1.8 % (0.0-3.0); HEMATOCRIT 33.6 % (37.0-47.0); HEMOGLOBIN 11.3 gm/dL (12.0-15.0); LYMPHOCYTES 26.9 % (24.0-44.0); MCH 30.9 pg (26.0-34.0); MCHC 33.8 g/dL (28.0-37.0); MCV 91.5 fL (80.0-100.0); MONOCYTES 7.9 % (1.0-8.0); PLATELET COUNT 160 thou/uL (150-400); POLYS 62.8 % (36.0-66.0); RBC 3.67 mil/uL (4.20-5.00); RDW 13.6 % (10.5-14.5); WBC 6.8 thou/uL (4.0-11.0)
[2017-02-27 05:15] LABS: MANUAL DIFF NO
[2017-02-27 05:23] LABS: CALCIUM 8.3 mg/dL (8.5-10.1); POTASSIUM 4.3 mmol/L (3.5-5.1)
[2017-02-27 05:40] VITALS: BP 117/66
[2017-02-27 10:25] VITALS: BP 83/44; BP 88/45
[2017-02-27 11:03] VITALS: BP 92/47
[2017-02-27 15:45] VITALS: BP 113/63
[2017-02-28 05:29] VITALS: BP 142/84
[2017-02-28] MEDS ORDERED: AMLODIPINE BESYL5 M1 PO (11:29)
[2017-02-28] MEDS ORDERED: RISPERDAL0.5 MG PO ×2 (11:29)
[2017-02-28] MEDS ORDERED: PROTONIX 20 MG20 M1 PO (11:29)
[2017-02-28 15:16] VITALS: BP 125/65
[2017-03-01 05:07] VITALS: BP 169/93
[2017-03-01 05:45] VITALS: BP 135/82
[2017-03-01 09:56] VITALS: BP 115/62
== END 2017-03-01 13:30 | DRG 64 ==
PROVIDERS: Internal Medicine; Nurse Practitioner; Physical Medicine & Rehabilitation
DX: I63.9 Cerebral infarction, unspecified (principal); G93.41 Metabolic encephalopathy; J18.9 Pneumonia, unspecified organism; E87.1 Hypo-osmolality and hyponatremia; R44.3 Hallucinations, unspecified; F03.90 Unspecified dementia, unspecified severity, without behavioral disturbance, psychotic disturbance, mood disturbance, and anxiety; I10 Essential (primary) hypertension; R13.10 Dysphagia, unspecified; E03.9 Hypothyroidism, unspecified; E78.5 Hyperlipidemia, unspecified; Z96.642 Presence of left artificial hip joint; E78.00 Pure hypercholesterolemia, unspecified; R41.0 Disorientation, unspecified; R45.1 Restlessness and agitation; Z98.49 Cataract extraction status, unspecified eye; Z94.7 Corneal transplant status; Z88.2 Allergy status to sulfonamides
CPT/HCPCS: 10112